=== PATIENT | female | born 1980 | race Two or more races ===

== ENCOUNTER 2020-03-24 16:19 | Inpatient (IN) | payer MEDICAID ==
[~2020-03-24] VITALS: Ht 162.6 cm; Wt 166.0 kg
[2020-03-24] MEDS ORDERED: DexAMETHasone SOD PHOS 10MG/1ML VIAL INJ IV ONE (16:45)
[2020-03-24] MEDS ORDERED: cefTRIAXone 1GM/50ML D5W 50 ML IV ONE (16:45)
[2020-03-24 17:42] LABS: Albumin 2.5 g/dL (3.4-5.0); Anion Gap 4 (5-15); Blood Urea Nitrogen 31 mg/dL (7-18); Calcium 8.9 mg/dL (8.5-10.1); Carbon Dioxide 32 mmol/L (21-32); Chloride 99 mmol/L (98-107); Glucose 61 mg/dL (74-106); Potassium 4.3 mmol/L (3.5-5.1); Sodium 135 mmol/L (136-145)
[2020-03-24 17:51] LABS: Alanine Aminotransferase 19 U/L (13-56); Alkaline Phosphatase 75 U/L (45-117); Aspartate Aminotransferase 20 U/L (15-37); BUN/Creatinine Ratio 22.1; Bilirubin, Total 0.4 mg/dL (0.2-1.0); GFR African American 54 mL/min; GFR Non-African American 44 mL/min; Lactate Dehydrogenase 242 U/L (84-246); Total Protein 7.6 g/dL (6.4-8.2)
[2020-03-24 17:57] LABS: INR 1.05 (0.9-1.15); Partial Thromboplastin Time 29.1 sec (23.0-31.2)
[2020-03-24 18:15] LABS: Basophils # (auto) 0 10 ^3/uL (0-0.2); Eosinophils # (auto) 0.1 10 ^3/uL (0-0.8); Hemoglobin 9.9 g/dL (12.2-16.2); Lymphocytes # (auto) 2.1 10 ^3/uL (0.4-5.4); Monocytes # (auto) 0.5 10 ^3/uL (0-1.3); Red Cell Distribution Width 18.3 % (11.8-14.3)
[2020-03-24 18:16] LABS: Basophils % (auto) 0.3 % (0.0-2.0); Eosinophils % (auto) 0.8 % (0.0-7.0); Hematocrit 31.8 % (36.0-46.0); Lymphocytes % (auto) 20.8 % (10.0-50.0); Mean Corpuscular Hemoglobin 24.6 pg (28.0-32.0); Mean Corpuscular Hgb Conc. 31.1 g/dL (32.0-36.0); Mean Corpuscular Volume 79.2 fL (80.0-100.0); Neutrophils # (auto) 7.2 10 ^3/uL (1.6-8.6); Neutrophils % (auto) 73.1 % (37.0-80.0); Nucleated Red Blood Cells % 0.1 %; Platelet Count (auto) 344 10^3/uL (140-450); Red Blood Cells 4.02 10^6/uL (4.0-5.20); White Blood Cell 9.9 10^3/uL (4.4-10.8)
[2020-03-24] MEDS ORDERED: FUROSEMIDE 40 MG/4 ML VIAL IV ONE (19:30)
[2020-03-24] MEDS ORDERED: LORazepam 0.5 MG TAB PO PRN (19:30)
[2020-03-24] MEDS ORDERED: ACETAMINOPHEN 500 MG TAB PO PRN (19:30)
[2020-03-24] MEDS ORDERED: MORPHINE SULF INJ 2 MG/ML SYRINGE 1ML IV PRN ×2 (19:30)
[2020-03-24] MEDS ORDERED: NITROGLYCERIN 0.4 MG SL TAB SL PRN (19:30)
[2020-03-24] MEDS ORDERED: ONDANSETRON HCL 4 MG/2 ML VIAL IV PRN (19:30)
[2020-03-24] MEDS ORDERED: ALUM & MAG HYDROX-SIMETH LIQ(MAALOX) 30 ML PO PRN (19:30)
[2020-03-24] MEDS ORDERED: REMDESIVIR PER PHARMACY 0 ML IV SCH (19:30)
[2020-03-24] MEDS ORDERED: DOCUSATE SOD 100 MG CAP PO PRN (19:30)
[2020-03-24] MEDS ORDERED: GABAPENTIN 300 MG CAP PO ONE (19:45)
[2020-03-24] MEDS: BUDESONIDE (INHALATION) 180 MCG IH IN SCH (22:00)
[2020-03-24] MEDS: ATORVASTATIN 20 MG TAB PO SCH (22:00)
[2020-03-24] MEDS: GABAPENTIN 300 MG CAP PO SCH (22:00)
[2020-03-24] MEDS: OXYBUTYNIN CHL 5 MG TAB PO SCH (22:00)
[2020-03-24] MEDS: HYDROcodone-ACET 5/325MG TAB PO PRN (22:00)
[2020-03-24 22:02] LABS: % Iron Saturation 2.9 % (15-50)
[2020-03-24 22:07] LABS: Cholesterol 131 mg/dL (< 200); HDL Cholesterol 33 mg/dL (40-59); LDL Cholesterol 76 mg/dL (< 100); Triglycerides 156 mg/dL (< 150)
[2020-03-24] MEDS: ZINC SULFATE 220mg CAP or TAB PO SCH (23:00)
[2020-03-24] MEDS: ASCORBIC ACID 1,000 MG TAB PO SCH (23:00)
[2020-03-24] MEDS: CHOLECALCIFEROL (VITD3) 2,000 UNIT CAP PO SCH (23:00)
[2020-03-24] MEDS: ENOXAPARIN SOD 120 MG/0.8 ML SYRINGE SC SCH (23:15)
[2020-03-24] MEDS: FAMOTIDINE (10MG/ML) 2ML VL IV SCH (23:15)
[2020-03-24 23:43] LABS: Urine Bacteria MOD /hpf (None Seen); Urine Blood Negative /uL (Negative); Urine Hyaline Cast FEW /lpf (0 - 2); Urine Specific Gravity 1.014 (1.001-1.035); Urine WBC 102 /hpf (0 - 5)
[2020-03-24 23:57] LABS: Amphetamine Screen, Urine NEGATIVE (NEGATIVE); Barbiturate Scree,Urine NEGATIVE (NEGATIVE); Benzodiazephine Screen, Urine POSITIVE (NEGATIVE); Cannabinoid Screen, Urine POSITIVE (NEGATIVE); Cocaine Screen, Urine NEGATIVE (NEGATIVE); Opiate Scree,Urine POSITIVE (NEGATIVE); Phencyclidine Screen, Urine NEGATIVE (NEGATIVE)
[2020-03-25] MEDS: CEFEPIME 2 GM in SODIUM CHL 0.9% 50 ML IV SCH ×3 (00:07→13:35)
[2020-03-25] MEDS: HYDROcodone-ACET 5/325MG TAB PO PRN (03:56)
[2020-03-25 04:29] LABS: Basophils # (auto) 0 10 ^3/uL (0-0.2); Eosinophils # (auto) 0 10 ^3/uL (0-0.8); Hemoglobin 9.8 g/dL (12.2-16.2); Mean Corpuscular Volume 78.5 fL (80.0-100.0); Nucleated Red Blood Cells % 0.1 %; White Blood Cell 15.4 10^3/uL (4.4-10.8)
[2020-03-25 04:31] LABS: Basophils % (auto) 0.3 % (0.0-2.0); Eosinophils % (auto) 0.2 % (0.0-7.0); Hematocrit 31.7 % (36.0-46.0); Lymphocytes # (auto) 0.9 10 ^3/uL (0.4-5.4); Lymphocytes % (auto) 6.1 % (10.0-50.0); Mean Corpuscular Hemoglobin 24.2 pg (28.0-32.0); Mean Corpuscular Hgb Conc. 30.9 g/dL (32.0-36.0); Monocytes # (auto) 0.4 10 ^3/uL (0-1.3); Monocytes % (auto) 2.3 % (0.0-12.0); Neutrophils % (auto) 91.1 % (37.0-80.0); Platelet Count (auto) 357 10^3/uL (140-450); Red Blood Cells 4.04 10^6/uL (4.0-5.20); Red Cell Distribution Width 18.1 % (11.8-14.3)
[2020-03-25 04:59] LABS: Albumin 2.7 g/dL (3.4-5.0); Calcium 8.8 mg/dL (8.5-10.1); Potassium 5.2 mmol/L (3.5-5.1)
[2020-03-25 05:04] LABS: Bilirubin, Total 0.5 mg/dL (0.2-1.0); Total Protein 7.6 g/dL (6.4-8.2)
[2020-03-25] MEDS ORDERED: CALCIUM CHL 100MG/ML 500 MG in D5W 5% 100 ML IV ONE (05:45)
[2020-03-25] MEDS ORDERED: ALBUTEROL SULF 2.5 MG/0.5ML(0.5%) NEB SOLN NEB ONE (05:45)
[2020-03-25] MEDS ORDERED: InsuLIN REG 1unit/0.01ml Soln (100units/ml) IV ONE (05:45)
[2020-03-25] MEDS ORDERED: SODIUM ZIRCONIUM CYCL 10 GM PAK PO ONE (05:45)
[2020-03-25] MEDS ORDERED: FUROSEMIDE 40 MG/4 ML VIAL IV ONE (05:45)
[2020-03-25] MEDS ORDERED: SODIUM BICARBONATE 8.4% INJ 50ML SYRINGE IV ONE (05:45)
[2020-03-25] MEDS ORDERED: DEXTROSE (50%) 50ML SYRG IV ONE (05:45)
[2020-03-25] MEDS ORDERED: SODIUM FERR GLUC 62.5MG/5ML 125 MG in SODIUM CHL 0.9% 100 ML IV ONE (05:45)
[2020-03-25] MEDS: FUROSEMIDE 20 MG/2 ML VIAL IV SCH ×2 (06:00→16:58)
[2020-03-25] MEDS: SODIUM ZIRCONIUM CYCL 10 GM PAK PO SCH ×3 (06:00→21:23)
[2020-03-25] MEDS ORDERED: LEVOTHYROXINE SODIUM 50 MCG TAB PO SCH (07:00)
[2020-03-25] MEDS: GABAPENTIN 300 MG CAP PO SCH ×3 (07:02→21:23)
[2020-03-25] MEDS: ASCORBIC ACID 1,000 MG TAB PO SCH (07:07)
[2020-03-25] MEDS: DULoxetine HCL 30 MG CAP PO SCH (07:07)
[2020-03-25] MEDS: ZINC SULFATE 220mg CAP or TAB PO SCH (07:07)
[2020-03-25] MEDS: OXYBUTYNIN CHL 5 MG TAB PO SCH ×2 (07:07→21:22)
[2020-03-25] MEDS: METOPROLOL SUCCINATE XL 50 MG TAB PO SCH (07:08)
[2020-03-25] MEDS: ENOXAPARIN SOD 120 MG/0.8 ML SYRINGE SC SCH ×2 (07:09→21:10)
[2020-03-25] MEDS: LEVOTHYROXINE SODIUM 100 MCG TAB PO SCH (07:09)
[2020-03-25] MEDS: CHOLECALCIFEROL (VITD3) 2,000 UNIT CAP PO SCH (07:15)
[2020-03-25] MEDS: DexAMETHasone SOD PHOS 10MG/1ML VIAL INJ IV SCH (07:15)
[2020-03-25] MEDS: ASPirin 81 mg TAB PO SCH (07:15)
[2020-03-25] MEDS: FAMOTIDINE (10MG/ML) 2ML VL IV SCH ×2 (07:15→22:27)
[2020-03-25] MEDS: SODIUM FERR GLUC 62.5MG/5ML 125 MG in SODIUM CHL 0.9% 100 ML IV SCH (07:27)
[2020-03-25] MEDS: MEPERIDINE HCL (25 MG/ML) 1ML VIAL IM PRN ×2 (09:37→16:59)
[2020-03-25] MEDS: BUDESONIDE (INHALATION) 180 MCG IH IN SCH ×2 (10:00→22:00)
[2020-03-25] MEDS ORDERED: ENOXAPARIN SOD 120 MG/0.8 ML SYRINGE SC SCH (10:00)
[2020-03-25] MEDS ORDERED: REMDESIVIR 200 MG in NS 210ml LOADING DOSE ADULT IV ONE (17:00)
[2020-03-25] MEDS ORDERED: DOXYCYCLINE 100MG/250ML 250 ML IV SCH (17:00)
[2020-03-25] MEDS ORDERED: CEFTRIAXONE SODIUM 2 GM in D5W 5% 50 ML IV ONE (20:00)
[2020-03-25] MEDS: ATORVASTATIN 20 MG TAB PO SCH (21:23)
[2020-03-25] MEDS: DOXYCYCLINE 100MG/250ML 250 ML IV SCH (22:27)
[2020-03-26] MEDS: MEPERIDINE HCL (25 MG/ML) 1ML VIAL IM PRN ×3 (01:03→20:16)
[2020-03-26 01:18] VITALS: BP 139/84
[2020-03-26] MEDS ORDERED: DEXTROSE (50%) 50ML SYRG IV PRN ×2 (06:30→13:30)
[2020-03-26] MEDS: LEVOTHYROXINE SODIUM 100 MCG TAB PO SCH (06:40)
[2020-03-26] MEDS: GABAPENTIN 300 MG CAP PO SCH ×3 (06:40→22:44)
[2020-03-26] MEDS: FUROSEMIDE 20 MG/2 ML VIAL IV SCH (06:40)
[2020-03-26 08:00] VITALS: BP 145/91
[2020-03-26] MEDS: ENOXAPARIN SOD 120 MG/0.8 ML SYRINGE SC SCH (08:25)
[2020-03-26] MEDS: SODIUM ZIRCONIUM CYCL 10 GM PAK PO SCH (08:25)
[2020-03-26] MEDS: SODIUM FERR GLUC 62.5MG/5ML 125 MG in SODIUM CHL 0.9% 100 ML IV SCH (09:41)
[2020-03-26] MEDS: DexAMETHasone SOD PHOS 10MG/1ML VIAL INJ IV SCH (11:00)
[2020-03-26] MEDS: ZINC SULFATE 220mg CAP or TAB PO SCH (11:00)
[2020-03-26] MEDS: DULoxetine HCL 30 MG CAP PO SCH (11:00)
[2020-03-26] MEDS: ASPirin 81 mg TAB PO SCH (11:00)
[2020-03-26] MEDS: FAMOTIDINE (10MG/ML) 2ML VL IV SCH ×2 (11:00→22:43)
[2020-03-26] MEDS: ASCORBIC ACID 1,000 MG TAB PO SCH (11:01)
[2020-03-26] MEDS: OXYBUTYNIN CHL 5 MG TAB PO SCH ×2 (11:01→22:44)
[2020-03-26] MEDS: METOPROLOL SUCCINATE XL 50 MG TAB PO SCH (11:01)
[2020-03-26] MEDS: CHOLECALCIFEROL (VITD3) 2,000 UNIT CAP PO SCH (11:02)
[2020-03-26 11:12] LABS: Albumin 2.5 g/dL (3.4-5.0); Calcium 8.3 mg/dL (8.5-10.1); Potassium 3.9 mmol/L (3.5-5.1)
[2020-03-26 11:15] LABS: BUN/Creatinine Ratio 34.1; Bilirubin, Total 0.3 mg/dL (0.2-1.0)
[2020-03-26] MEDS: DOXYCYCLINE 100MG/250ML 250 ML IV SCH ×2 (11:19→22:44)
[2020-03-26] MEDS ORDERED: InsuLIN REG 1unit/0.01ml Soln (100units/ml) SC SCH (12:00)
[2020-03-26] MEDS ORDERED: ACCU-CHEK COMFORT CURVE STRIP VI SCH (12:00)
[2020-03-26] MEDS: BUDESONIDE (INHALATION) 180 MCG IH IN SCH ×2 (12:10→20:59)
[2020-03-26] MEDS: CEFTRIAXONE SODIUM 2 GM in D5W 5% 50 ML IV SCH (12:10)
[2020-03-26] MEDS ORDERED: FUROSEMIDE 40 MG/4 ML VIAL IV ONE (13:30)
[2020-03-26] MEDS ORDERED: REMDESIVIR PER PHARMACY 0 ML IV SCH (13:45)
[2020-03-26 16:00] VITALS: BP 158/103
[2020-03-26] MEDS: REMDESIVIR 100 MG in SODIUM CHL 0.9% 250 ML IV SCH (16:13)
[2020-03-26] MEDS: HYDROcodone-ACET 5/325MG TAB PO PRN (16:41)
[2020-03-26] MEDS: ACCU-CHEK COMFORT CURVE STRIP VI SCH ×2 (17:48→22:44)
[2020-03-26] MEDS: InsuLIN REG 1unit/0.01ml Soln (100units/ml) SC SCH ×2 (17:49→22:46)
[2020-03-26] MEDS: ALBUTEROL SULF HFA 90MCG INH 200DOSE IN PRN (21:01)
[2020-03-26] MEDS: ATORVASTATIN 20 MG TAB PO SCH (22:44)
[2020-03-26] MEDS: ENOXAPARIN SOD 40 MG/0.4 ML SYRINGE SC SCH (22:45)
[2020-03-26] MEDS: INSULIN LANTUS (GLARGINE) 1 /0.01ml (100units/ml) SC SCH (22:46)
[2020-03-27] VITALS: BP 159/93
[2020-03-27] MEDS: HYDROcodone-ACET 5/325MG TAB PO PRN (00:08)
[2020-03-27] MEDS: MEPERIDINE HCL (25 MG/ML) 1ML VIAL IM PRN ×3 (02:30→22:54)
[2020-03-27] MEDS: GABAPENTIN 300 MG CAP PO SCH ×3 (06:07→22:31)
[2020-03-27] MEDS: LEVOTHYROXINE SODIUM 100 MCG TAB PO SCH (06:35)
[2020-03-27] MEDS: ACCU-CHEK COMFORT CURVE STRIP VI SCH ×4 (06:35→22:31)
[2020-03-27] MEDS: InsuLIN REG 1unit/0.01ml Soln (100units/ml) SC SCH ×4 (06:36→22:32)
[2020-03-27] MEDS: ALBUTEROL SULF HFA 90MCG INH 200DOSE IN PRN ×2 (07:02→22:50)
[2020-03-27] MEDS: BUDESONIDE (INHALATION) 180 MCG IH IN SCH ×2 (07:02→22:50)
[2020-03-27 08:00] VITALS: BP 129/67
[2020-03-27] MEDS: CEFTRIAXONE SODIUM 2 GM in D5W 5% 50 ML IV SCH (08:59)
[2020-03-27] MEDS: SODIUM FERR GLUC 62.5MG/5ML 125 MG in SODIUM CHL 0.9% 100 ML IV SCH (08:59)
[2020-03-27 09:05] LABS: Potassium 3.7 mmol/L (3.5-5.1)
[2020-03-27 09:28] LABS: Albumin 2.5 g/dL (3.4-5.0); BUN/Creatinine Ratio 36.7; Bilirubin, Total 0.3 mg/dL (0.2-1.0); Calcium 8.5 mg/dL (8.5-10.1); Total Protein 7.6 g/dL (6.4-8.2)
[2020-03-27] MEDS ORDERED: ERGOCALCIFEROL 50,000 UNIT(1.25MG) CAP PO SCH (11:15)
[2020-03-27] MEDS: FAMOTIDINE (10MG/ML) 2ML VL IV SCH ×2 (11:45→22:30)
[2020-03-27] MEDS: DexAMETHasone SOD PHOS 10MG/1ML VIAL INJ IV SCH (11:45)
[2020-03-27] MEDS: FUROSEMIDE 20 MG/2 ML VIAL IV SCH (11:45)
[2020-03-27] MEDS: DULoxetine HCL 30 MG CAP PO SCH (11:46)
[2020-03-27] MEDS: DOXYCYCLINE 100MG/250ML 250 ML IV SCH ×2 (11:46→22:30)
[2020-03-27] MEDS: OXYBUTYNIN CHL 5 MG TAB PO SCH ×2 (11:46→22:30)
[2020-03-27] MEDS: ZINC SULFATE 220mg CAP or TAB PO SCH (11:46)
[2020-03-27] MEDS: ASPirin 81 mg TAB PO SCH (11:46)
[2020-03-27] MEDS: METOPROLOL SUCCINATE XL 50 MG TAB PO SCH (11:47)
[2020-03-27] MEDS: ASCORBIC ACID 1,000 MG TAB PO SCH (11:49)
[2020-03-27] MEDS: INSULIN LANTUS (GLARGINE) 1 /0.01ml (100units/ml) SC SCH ×2 (13:17→22:32)
[2020-03-27] MEDS: ENOXAPARIN SOD 40 MG/0.4 ML SYRINGE SC SCH ×2 (13:18→22:31)
[2020-03-27 16:00] VITALS: BP 162/79
[2020-03-27] MEDS ORDERED: MAGNESIUM OXIDE 400 MG TAB PO ONE (16:00)
[2020-03-27] MEDS: REMDESIVIR 100 MG in SODIUM CHL 0.9% 250 ML IV SCH (17:12)
[2020-03-27] MEDS: ATORVASTATIN 20 MG TAB PO SCH (22:31)
[2020-03-28] VITALS: BP 175/99
[2020-03-28] MEDS: hydrALAZINE HCL 20 MG/ML VL IV PRN ×2 (00:18→04:26)
[2020-03-28 05:26] VITALS: BP 134/68
[2020-03-28] MEDS: LEVOTHYROXINE SODIUM 100 MCG TAB PO SCH (06:34)
[2020-03-28] MEDS: GABAPENTIN 300 MG CAP PO SCH ×3 (06:34→22:41)
[2020-03-28] MEDS: ACCU-CHEK COMFORT CURVE STRIP VI SCH ×4 (06:34→22:41)
[2020-03-28] MEDS: InsuLIN REG 1unit/0.01ml Soln (100units/ml) SC SCH ×4 (06:35→22:40)
[2020-03-28 06:59] LABS: Basophils # (auto) 0 10 ^3/uL (0-0.2); Basophils % (auto) 0.3 % (0.0-2.0); Eosinophils # (auto) 0 10 ^3/uL (0-0.8); Eosinophils % (auto) 0.4 % (0.0-7.0); Lymphocytes # (auto) 2.5 10 ^3/uL (0.4-5.4); Mean Corpuscular Volume 78.5 fL (80.0-100.0)
[2020-03-28 07:03] LABS: Hematocrit 33.5 % (36.0-46.0); Hemoglobin 10.6 g/dL (12.2-16.2); Lymphocytes % (auto) 24.8 % (10.0-50.0); Mean Corpuscular Hemoglobin 24.7 pg (28.0-32.0); Mean Corpuscular Hgb Conc. 31.5 g/dL (32.0-36.0); Monocytes # (auto) 0.6 10 ^3/uL (0-1.3); Monocytes % (auto) 5.9 % (0.0-12.0); Neutrophils % (auto) 68.6 % (37.0-80.0); Nucleated Red Blood Cells % 0.1 %; Platelet Count (auto) 424 10^3/uL (140-450); Red Blood Cells 4.27 10^6/uL (4.0-5.20); Red Cell Distribution Width 17.9 % (11.8-14.3); White Blood Cell 10.1 10^3/uL (4.4-10.8)
[2020-03-28 07:10] LABS: Albumin 2.4 g/dL (3.4-5.0); Calcium 8.7 mg/dL (8.5-10.1); Potassium 3.9 mmol/L (3.5-5.1)
[2020-03-28 07:15] LABS: BUN/Creatinine Ratio 32.9; Bilirubin, Total 0.4 mg/dL (0.2-1.0); Total Protein 7.2 g/dL (6.4-8.2)
[2020-03-28 08:00] VITALS: BP 138/80
[2020-03-28] MEDS: SODIUM FERR GLUC 62.5MG/5ML 125 MG in SODIUM CHL 0.9% 100 ML IV SCH (08:00)
[2020-03-28] MEDS: CEFTRIAXONE SODIUM 2 GM in D5W 5% 50 ML IV SCH (08:03)
[2020-03-28] MEDS: MEPERIDINE HCL (25 MG/ML) 1ML VIAL IM PRN ×3 (08:13→21:00)
[2020-03-28] MEDS: DexAMETHasone SOD PHOS 10MG/1ML VIAL INJ IV SCH (10:15)
[2020-03-28] MEDS: FUROSEMIDE 20 MG/2 ML VIAL IV SCH (10:15)
[2020-03-28] MEDS: FAMOTIDINE (10MG/ML) 2ML VL IV SCH ×2 (10:15→22:39)
[2020-03-28] MEDS: DOXYCYCLINE 100MG/250ML 250 ML IV SCH ×2 (10:15→22:41)
[2020-03-28] MEDS: DULoxetine HCL 30 MG CAP PO SCH (10:16)
[2020-03-28] MEDS: ASPirin 81 mg TAB PO SCH (10:16)
[2020-03-28] MEDS: ZINC SULFATE 220mg CAP or TAB PO SCH (10:16)
[2020-03-28] MEDS: OXYBUTYNIN CHL 5 MG TAB PO SCH ×2 (10:17→22:41)
[2020-03-28] MEDS: MAGNESIUM OXIDE 400 MG TAB PO SCH (10:17)
[2020-03-28] MEDS: METOPROLOL SUCCINATE XL 50 MG TAB PO SCH (10:18)
[2020-03-28] MEDS: ASCORBIC ACID 1,000 MG TAB PO SCH (10:18)
[2020-03-28] MEDS: ENOXAPARIN SOD 40 MG/0.4 ML SYRINGE SC SCH ×2 (10:19→22:40)
[2020-03-28] MEDS: BUDESONIDE (INHALATION) 180 MCG IH IN SCH ×2 (10:40→21:22)
[2020-03-28] MEDS: INSULIN LANTUS (GLARGINE) 1 /0.01ml (100units/ml) SC SCH ×2 (10:40→22:40)
[2020-03-28] MEDS: REMDESIVIR 100 MG in SODIUM CHL 0.9% 250 ML IV SCH (15:46)
[2020-03-28 15:53] VITALS: BP 148/84
[2020-03-28] MEDS: ATORVASTATIN 20 MG TAB PO SCH (22:41)
[2020-03-28 23:52] VITALS: BP 135/83
[2020-03-29] VITALS: BP 135/83
[2020-03-29] MEDS: MEPERIDINE HCL (25 MG/ML) 1ML VIAL IM PRN ×4 (04:45→23:47)
[2020-03-29 05:50] VITALS: BP 130/74
[2020-03-29] MEDS: ACCU-CHEK COMFORT CURVE STRIP VI SCH ×4 (06:29→22:38)
[2020-03-29] MEDS: InsuLIN REG 1unit/0.01ml Soln (100units/ml) SC SCH ×4 (06:29→22:39)
[2020-03-29] MEDS: GABAPENTIN 300 MG CAP PO SCH ×3 (06:29→22:38)
[2020-03-29] MEDS: LEVOTHYROXINE SODIUM 100 MCG TAB PO SCH (06:30)
[2020-03-29 07:56] LABS: Albumin 2.6 g/dL (3.4-5.0); BUN/Creatinine Ratio 26.3
[2020-03-29 07:59] LABS: Bilirubin, Total 0.3 mg/dL (0.2-1.0); Total Protein 6.7 g/dL (6.4-8.2)
[2020-03-29 08:00] VITALS: BP 144/86
[2020-03-29] MEDS: ENOXAPARIN SOD 40 MG/0.4 ML SYRINGE SC SCH ×3 (10:00→22:38)
[2020-03-29] MEDS: BUDESONIDE (INHALATION) 180 MCG IH IN SCH ×2 (10:00→20:00)
[2020-03-29] MEDS: DexAMETHasone SOD PHOS 10MG/1ML VIAL INJ IV SCH (10:04)
[2020-03-29] MEDS: FUROSEMIDE 20 MG/2 ML VIAL IV SCH (10:04)
[2020-03-29] MEDS: FAMOTIDINE (10MG/ML) 2ML VL IV SCH ×2 (10:04→22:36)
[2020-03-29] MEDS: OXYBUTYNIN CHL 5 MG TAB PO SCH ×2 (10:05→22:37)
[2020-03-29] MEDS: DULoxetine HCL 30 MG CAP PO SCH (10:05)
[2020-03-29] MEDS: ASPirin 81 mg TAB PO SCH (10:05)
[2020-03-29] MEDS: ZINC SULFATE 220mg CAP or TAB PO SCH (10:05)
[2020-03-29] MEDS: MAGNESIUM OXIDE 400 MG TAB PO SCH (10:05)
[2020-03-29] MEDS: ASCORBIC ACID 1,000 MG TAB PO SCH (10:06)
[2020-03-29] MEDS: METOPROLOL SUCCINATE XL 50 MG TAB PO SCH (10:06)
[2020-03-29] MEDS: CEFTRIAXONE SODIUM 2 GM in D5W 5% 50 ML IV SCH (10:08)
[2020-03-29] MEDS: INSULIN LANTUS (GLARGINE) 1 /0.01ml (100units/ml) SC SCH ×2 (10:22→22:38)
[2020-03-29] MEDS: SODIUM FERR GLUC 62.5MG/5ML 125 MG in SODIUM CHL 0.9% 100 ML IV SCH (10:57)
[2020-03-29] MEDS: DOXYCYCLINE 100MG/250ML 250 ML IV SCH ×2 (12:10→22:37)
[2020-03-29] MEDS: REMDESIVIR 100 MG in SODIUM CHL 0.9% 250 ML IV SCH (14:53)
[2020-03-29 15:40] VITALS: BP 134/79
[2020-03-29] MEDS: ALBUTEROL SULF HFA 90MCG INH 200DOSE IN PRN (20:00)
[2020-03-29] MEDS: ATORVASTATIN 20 MG TAB PO SCH (22:37)
[2020-03-29 23:22] VITALS: BP 135/65
[2020-03-30] VITALS: BP 135/65
[2020-03-30 05:48] VITALS: BP 147/76
[2020-03-30] MEDS: MEPERIDINE HCL (25 MG/ML) 1ML VIAL IM PRN ×3 (05:57→20:54)
[2020-03-30] MEDS: ACCU-CHEK COMFORT CURVE STRIP VI SCH ×4 (06:37→21:59)
[2020-03-30] MEDS: GABAPENTIN 300 MG CAP PO SCH ×3 (06:37→22:25)
[2020-03-30] MEDS: LEVOTHYROXINE SODIUM 100 MCG TAB PO SCH (06:37)
[2020-03-30] MEDS: InsuLIN REG 1unit/0.01ml Soln (100units/ml) SC SCH ×4 (06:38→22:11)
[2020-03-30] MEDS: ALBUTEROL SULF HFA 90MCG INH 200DOSE IN PRN ×2 (06:45→20:23)
[2020-03-30] MEDS: BUDESONIDE (INHALATION) 180 MCG IH IN SCH ×2 (06:45→19:00)
[2020-03-30 08:00] VITALS: BP 114/71
[2020-03-30 09:00] VITALS: BP 125/62
[2020-03-30] MEDS: OXYBUTYNIN CHL 5 MG TAB PO SCH ×2 (10:49→22:24)
[2020-03-30] MEDS: ASPirin 81 mg TAB PO SCH (10:50)
[2020-03-30] MEDS: METOPROLOL SUCCINATE XL 50 MG TAB PO SCH (10:50)
[2020-03-30] MEDS: ZINC SULFATE 220mg CAP or TAB PO SCH (10:51)
[2020-03-30] MEDS: DULoxetine HCL 30 MG CAP PO SCH (10:51)
[2020-03-30] MEDS: ASCORBIC ACID 1,000 MG TAB PO SCH (10:51)
[2020-03-30] MEDS: MAGNESIUM OXIDE 400 MG TAB PO SCH (10:51)
[2020-03-30] MEDS: DOXYCYCLINE 100MG/250ML 250 ML IV SCH ×2 (10:52→22:24)
[2020-03-30] MEDS: FAMOTIDINE (10MG/ML) 2ML VL IV SCH ×2 (10:52→22:24)
[2020-03-30] MEDS: DexAMETHasone SOD PHOS 10MG/1ML VIAL INJ IV SCH (10:52)
[2020-03-30] MEDS: INSULIN LANTUS (GLARGINE) 1 /0.01ml (100units/ml) SC SCH ×2 (10:54→22:11)
[2020-03-30] MEDS: ENOXAPARIN SOD 40 MG/0.4 ML SYRINGE SC SCH ×2 (11:54→22:25)
[2020-03-30] MEDS: SODIUM FERR GLUC 62.5MG/5ML 125 MG in SODIUM CHL 0.9% 100 ML IV SCH (12:08)
[2020-03-30 16:00] VITALS: BP 152/88
[2020-03-30] MEDS: FUROSEMIDE 20 MG/2 ML VIAL IV SCH (16:00)
[2020-03-30] MEDS: CEFTRIAXONE SODIUM 2 GM in D5W 5% 50 ML IV SCH (16:12)
[2020-03-30] MEDS: ATORVASTATIN 20 MG TAB PO SCH (22:24)
[2020-03-31] VITALS: BP 146/93
[2020-03-31] MEDS: MEPERIDINE HCL (25 MG/ML) 1ML VIAL IM PRN ×3 (04:08→20:41)
[2020-03-31] MEDS: ACCU-CHEK COMFORT CURVE STRIP VI SCH ×4 (06:18→22:00)
[2020-03-31] MEDS: ALBUTEROL SULF HFA 90MCG INH 200DOSE IN PRN ×2 (06:32→20:04)
[2020-03-31] MEDS: BUDESONIDE (INHALATION) 180 MCG IH IN SCH ×2 (06:32→20:04)
[2020-03-31] MEDS: LEVOTHYROXINE SODIUM 100 MCG TAB PO SCH (06:34)
[2020-03-31] MEDS: GABAPENTIN 300 MG CAP PO SCH ×3 (06:34→22:00)
[2020-03-31] MEDS: InsuLIN REG 1unit/0.01ml Soln (100units/ml) SC SCH ×4 (06:37→21:30)
[2020-03-31 08:00] VITALS: BP 150/78
[2020-03-31] MEDS: CEFTRIAXONE SODIUM 2 GM in D5W 5% 50 ML IV SCH (10:14)
[2020-03-31] MEDS: FUROSEMIDE 20 MG/2 ML VIAL IV SCH (10:15)
[2020-03-31] MEDS: ENOXAPARIN SOD 40 MG/0.4 ML SYRINGE SC SCH ×2 (10:16→22:00)
[2020-03-31] MEDS: DexAMETHasone SOD PHOS 10MG/1ML VIAL INJ IV SCH (10:16)
[2020-03-31] MEDS: FAMOTIDINE (10MG/ML) 2ML VL IV SCH ×2 (10:16→21:59)
[2020-03-31] MEDS: DOXYCYCLINE 100MG/250ML 250 ML IV SCH ×2 (10:17→21:59)
[2020-03-31] MEDS: ASCORBIC ACID 1,000 MG TAB PO SCH (10:17)
[2020-03-31] MEDS: OXYBUTYNIN CHL 5 MG TAB PO SCH ×2 (10:17→21:59)
[2020-03-31] MEDS: ASPirin 81 mg TAB PO SCH (10:17)
[2020-03-31] MEDS: DULoxetine HCL 30 MG CAP PO SCH (10:18)
[2020-03-31] MEDS: ZINC SULFATE 220mg CAP or TAB PO SCH (10:18)
[2020-03-31] MEDS: METOPROLOL SUCCINATE XL 50 MG TAB PO SCH (10:18)
[2020-03-31] MEDS: INSULIN LANTUS (GLARGINE) 1 /0.01ml (100units/ml) SC SCH ×2 (10:31→21:30)
[2020-03-31] MEDS: MAGNESIUM OXIDE 400 MG TAB PO SCH (10:31)
[2020-03-31] MEDS: SODIUM FERR GLUC 62.5MG/5ML 125 MG in SODIUM CHL 0.9% 100 ML IV SCH (13:59)
[2020-03-31 16:00] VITALS: BP 150/78
[2020-03-31] MEDS: ATORVASTATIN 20 MG TAB PO SCH (22:00)
[2020-04-01] VITALS: BP 141/69
[2020-04-01] MEDS: ACCU-CHEK COMFORT CURVE STRIP VI SCH ×2 (06:08→12:09)
[2020-04-01] MEDS: LEVOTHYROXINE SODIUM 100 MCG TAB PO SCH (06:08)
[2020-04-01] MEDS: GABAPENTIN 300 MG CAP PO SCH ×2 (06:08→14:39)
[2020-04-01] MEDS: InsuLIN REG 1unit/0.01ml Soln (100units/ml) SC SCH ×2 (06:22→12:09)
[2020-04-01] MEDS: BUDESONIDE (INHALATION) 180 MCG IH IN SCH (06:24)
[2020-04-01] MEDS: ALBUTEROL SULF HFA 90MCG INH 200DOSE IN PRN (06:24)
[2020-04-01 08:00] VITALS: BP 148/70
[2020-04-01] MEDS: CEFTRIAXONE SODIUM 2 GM in D5W 5% 50 ML IV SCH (08:52)
[2020-04-01] MEDS: DexAMETHasone SOD PHOS 10MG/1ML VIAL INJ IV SCH (10:20)
[2020-04-01] MEDS: FAMOTIDINE (10MG/ML) 2ML VL IV SCH (10:20)
[2020-04-01] MEDS: FUROSEMIDE 20 MG/2 ML VIAL IV SCH (10:20)
[2020-04-01] MEDS: DOXYCYCLINE 100MG/250ML 250 ML IV SCH (10:21)
[2020-04-01] MEDS: DULoxetine HCL 30 MG CAP PO SCH (10:21)
[2020-04-01] MEDS: OXYBUTYNIN CHL 5 MG TAB PO SCH (10:21)
[2020-04-01] MEDS: ZINC SULFATE 220mg CAP or TAB PO SCH (10:21)
[2020-04-01] MEDS: ASPirin 81 mg TAB PO SCH (10:21)
[2020-04-01] MEDS: METOPROLOL SUCCINATE XL 50 MG TAB PO SCH (10:22)
[2020-04-01] MEDS: ASCORBIC ACID 1,000 MG TAB PO SCH (10:22)
[2020-04-01] MEDS: MAGNESIUM OXIDE 400 MG TAB PO SCH (10:22)
[2020-04-01] MEDS: ENOXAPARIN SOD 40 MG/0.4 ML SYRINGE SC SCH (10:22)
[2020-04-01] MEDS: INSULIN LANTUS (GLARGINE) 1 /0.01ml (100units/ml) SC SCH (10:23)
[2020-04-01] MEDS ORDERED: SODIUM FERR GLUC 62.5MG/5ML 125 MG in SODIUM CHL 0.9% 100 ML IV SCH (12:00)
[2020-04-01 12:23] VITALS: BP 148/70
[2020-04-01] MEDS: MEPERIDINE HCL (25 MG/ML) 1ML VIAL IM PRN (14:40)
[2020-04-01 16:00] VITALS: BP 99/53
== END 2020-04-01 15:30 | disposition home or self-care (01) | DRG 137 ==
LOC: ER 16:19 → OVERFLOW 19:37 → TELE-EAST 03-25 23:16
PROVIDERS: ADMIT Hospitalist; ATTEND Internal Medicine
PROC: XW033E5 Introduction of Remdesivir Anti-infective into Peripheral Vein, Percutaneous Approach, New Technology Group 5 (ICD-10-PCS; principal; 2020-03-25)
DX: U07.1 COVID-19 (principal); J96.21 Acute and chronic respiratory failure with hypoxia; J12.82 Pneumonia due to coronavirus disease 2019; E44.0 Moderate protein-calorie malnutrition; J44.1 Chronic obstructive pulmonary disease with (acute) exacerbation; E11.21 Type 2 diabetes mellitus with diabetic nephropathy; J45.901 Unspecified asthma with (acute) exacerbation; E66.01 Morbid (severe) obesity due to excess calories; E87.5 Hyperkalemia; N39.0 Urinary tract infection, site not specified; G47.33 Obstructive sleep apnea (adult) (pediatric); G89.4 Chronic pain syndrome; N39.3 Stress incontinence (female) (male); K21.9 Gastro-esophageal reflux disease without esophagitis; K29.70 Gastritis, unspecified, without bleeding; D50.9 Iron deficiency anemia, unspecified; E03.9 Hypothyroidism, unspecified; E11.40 Type 2 diabetes mellitus with diabetic neuropathy, unspecified; E55.9 Vitamin D deficiency, unspecified; F41.9 Anxiety disorder, unspecified; E78.5 Hyperlipidemia, unspecified; F10.10 Alcohol abuse, uncomplicated; E11.22 Type 2 diabetes mellitus with diabetic chronic kidney disease; Z86.73 Personal history of transient ischemic attack (TIA), and cerebral infarction without residual deficits; Q05.9 Spina bifida, unspecified; Z68.44 Body mass index [BMI] 60.0-69.9, adult; N18.31 Chronic kidney disease, stage 3a; E11.65 Type 2 diabetes mellitus with hyperglycemia; J44.0 Chronic obstructive pulmonary disease with (acute) lower respiratory infection; F17.200 Nicotine dependence, unspecified, uncomplicated; Z79.4 Long term (current) use of insulin
CPT/HCPCS: 36415; 71045; 76830; 76856; 80053; 80061; 80307; 81001; 82306; 82550; 82728; 82962; 83036; 83540; 83550; 83605; 83615; 83735; 83880; 84439; 84443; 84484; 85025; 85379; 85610; 85730; 86141; 87040; 87086; 87088; 87186; 87426; 93306; 94640; 97110; 97163; 97530; G0378; J0696; J1100; J1756; J1815; J3490; J7060

== ENCOUNTER 2021-03-04 14:14 | Emergency (ER) | payer MEDICAID ==
[~2021-03-04] VITALS: Ht 165.1 cm; Wt 163.3 kg
[2021-03-04 14:53] LABS: Mean Corpuscular Hemoglobin 26.2 pg (28.0-32.0); Mean Corpuscular Hgb Conc. 30.8 g/dL (32.0-36.0); White Blood Cell 20.6 10^3/uL (4.4-10.8)
[2021-03-04 14:55] LABS: Hematocrit 34.8 % (36.0-46.0); Hemoglobin 10.7 g/dL (12.2-16.2); Mean Corpuscular Volume 85.2 fL (80.0-100.0); Red Blood Cells 4.09 10^6/uL (4.0-5.20); Red Cell Distribution Width 16.5 % (11.8-14.3)
[2021-03-04 15:03] LABS: Albumin 1.8 g/dL (3.4-5.0); Calcium 7.9 mg/dL (8.5-10.1)
[2021-03-04 15:05] LABS: Basophils % (manual) 0 (0.0-2.0); Blast Cells 0; Eosinophils % (manual) 0 (0-7); Metamyelocytes % 0; Myelocytes % 0; Promyelocytes % 0; Reactive Lymphocytes 0
[2021-03-04 15:06] LABS: BUN/Creatinine Ratio 29.9; Bilirubin, Total 1.2 mg/dL (0.2-1.0); Total Protein 6.5 g/dL (6.4-8.2)
[2021-03-04 15:23] LABS: Band Neutrophils % (manual) 16; Lymphocytes % (manual) 9 (10.0-50.0); Monocytes % (manual) 5 (0-12)
[2021-03-04 15:26] LABS: Potassium 5.7 mmol/L (3.5-5.1)
[2021-03-04] MEDS ORDERED: NOREPINEPHRINE 8 MG/250ML KIT 250 ML IV SCH (16:00)
[2021-03-04] MEDS ORDERED: CALCIUM GLUC 1,000mg/50ml-NS 50 ML IV ONE (16:15)
[2021-03-04] MEDS ORDERED: DEXTROSE (50%) 50ML SYRG IV ONE (16:15)
[2021-03-04] MEDS ORDERED: PIPERACILLIN-TAZOB 3.375GM 100 ML IV ONE (16:15)
[2021-03-04] MEDS ORDERED: SODIUM BICARBONATE 8.4% INJ 50ML SYRINGE IV ONE (16:15)
[2021-03-04] MEDS ORDERED: ALBUTEROL SULF 2.5 MG/0.5ML(0.5%) NEB SOLN NEB ONE (16:15)
[2021-03-04] MEDS ORDERED: InsuLIN REG 1unit/0.01ml Soln (100units/ml) IV ONE (16:15)
[2021-03-04] MEDS ORDERED: SODIUM ZIRCONIUM CYCL 10 GM PAK PO ONE (16:15)
[2021-03-04] MEDS ORDERED: FUROSEMIDE 20 MG/2 ML VIAL IV ONE (16:15)
[2021-03-04] MEDS ORDERED: HYDROcodone-ACET 10/325MG TAB PO ONE (17:45)
[2021-03-04 18:30] LABS: Lactic Acid w/Reflex 2.7 mmol/L (0.4-2.0)
[2021-03-04 20:20] VITALS: BP 94/44
== END 2021-03-04 20:52 ==
LOC: EDBD 14:14 → ER 14:14
DX: A41.9 Sepsis, unspecified organism (principal); M72.6 Necrotizing fasciitis; E43 Unspecified severe protein-calorie malnutrition; I12.9 Hypertensive chronic kidney disease with stage 1 through stage 4 chronic kidney disease, or unspecified chronic kidney disease; N18.9 Chronic kidney disease, unspecified; Z68.43 Body mass index [BMI] 50.0-59.9, adult; Z88.6 Allergy status to analgesic agent; Z20.822 Contact with and (suspected) exposure to COVID-19
CPT/HCPCS: 36415; 74176; 80053; 82962; 83605; 85007; 85027; 87040; 87426; 93005; 94640; 96365; 96368; 96375; 99291; J1940; J2543; J7042